=== PATIENT | female | born 1970 | race Two or more races ===

== ENCOUNTER 2024-11-14 16:25 | Emergency (ER) | payer BC, SELFPAY ==
[2024-11-14 16:43] VITALS: BP 166/94; PULSE 97; RESP 18; TEMP 36.6; O2SAT 100; BMI 29.8
--- NOTE | 2024-11-14 16:43 | XR_ITS ---
Examination: Left elbow 3 views Technique: Elbow AP, oblique, lateral 3 views Exam date and time: November 14, 2024 1656 hrs. Indications: Patient fell today with injury to the elbow, elbow pain. Findings: Acute displaced supracondylar fracture distal humerus, with significant displacement of the medial humeral condyle Ulna and radius appear intact Impression: Acute displaced supracondylar fracture distal humerus.
--- NOTE | 2024-11-14 16:44 | PD.EDRME ---
Rapid Medical Screening Exam RME Arrival date/time: 11/14/24 16:25 54-year-old female presents the emergency department complaints of fall today patient reports left elbow pain Chief Complaint: Fall
[2024-11-14] MEDS: HYDROcodone/APAP 5/325 TABLET 1 TAB PO (16:59)
--- NOTE | 2024-11-14 17:27 | EDNOTE_ITS ---
ED Fall Injury RME/HPI General Chief Complaint: Fall Stated Complaint: left arm pain previous fx/ fell today Time Seen by Provider: 11/14/24 17:12 Arrival date/time: 11/14/24 16:25 RME / HPI RME / HPI Narrative: 11/14/24 16:25 54-year-old female presents the emergency department complaints of fall today patient reports left elbow pain DR. SALINAS MAIN ED EVALUATION: 54 year old female presents to the Emergency Department with complaint of left elbow pain secondary to fall today. Pain is described as aching and rated mild to moderate in severity. Movement exacerbates the pain. PMHx: Denies any known PMHx, surgeries, daily medications, or known allergies. Social Hx: No tobacco, alcohol, or substance use. Related Data Allergies Allergy/AdvReac Type Severity Reaction Status Date / Time NKA Allergy Unknown Uncoded 11/14/24 16:27 No Known Allergies Allergy Unknown Uncoded 12/09/06 17:24 Review of Systems Review of Systems Systems Reviewed: All systems reviewed, normal except as documented Narrative Review of Systems: GEN: No fever, no chills, no weight loss EYES: No discharge, no visual changes, no pain HEENT: No ear pain, no congestion, no sore throat PULM: No shortness of breath, no cough, no congestion CV: No chest pain, no dyspnea on exertion, no palpitations GI: No nausea, no vomiting, no diarrhea, no pain, no constipation : No frequency, no urgency and no dysuria MUSC/SKEL: + left elbow pain secondary to fall, no back pain SKIN: No rash PSYCH: No hallucinations, no depression HEME/LYMPH: No easy bleeding or bruising tendencies NEURO: No weakness, no headache Past Medical History Social History SMOKING STATUS: Never smoker SUBSTANCE USE: does not use ALCOHOL: Never ED Exam Narrative Physical exam: GENERAL APPEARANCE: alert and oriented x 4, well-developed, well-nourished VITALS: All vitals were reviewed and the pulse ox is 100% on room air, which is normal according to my interpretation. HEENT: Normocephalic, atraumatic; pupils equal, round, reactive to light; EOMI; mucous membranes pink, moist; oropharynx clear NECK: Supple LUNGS: CTABL; no wheezes, no rales, no rhonchi HEART: Regular rate, regular rhythm; normal S1, S2; no murmurs ABDOMEN: non distended; normal BS; soft, no tenderness, no guarding, no rebound; no masses, no organomegaly, no hernia BACK: no CVA tenderness EXTREMITIES: + left elbow deformity with some swelling NEUROLOGIC: awake; alert and oriented x4; cranial nerves II-XII grossly intact; no focal sensory or motor deficits PSYCHIATRIC: appropriate mood and affect SKIN: warm, dry, normal color; no rashes Course Course Course Narrative: 1800: Patient was signed out to Dr. Mari. Past medical, surgical, social and family history reviewed. Vitals and home medications reviewed. Results and treatment plan discussed. They will assume the care of the patient at this time and will follow the patient, pending transfer for ortho. Quality Measures none Orders Category Date Time Status XR elbow comp LT min 3V Stat Exams 11/14/24 16:43 Completed HYDROcodone*/APAP 5/325 [Adel 5/325] Med 11/14/24 16:43 Discontinued 1 tab PO X1 ONE Morphine Inj Med 11/14/24 17:34 Discontinued 5 mg IVP X1 ONE Ondansetron Inj [Zofran Inj] Med 11/14/24 17:34 Discontinued 4 mg IV X1 ONE Vital Signs Vital signs: Vital Signs Temperature 98 F 11/14/24 16:43 Pulse Rate 97 11/14/24 16:43 Respiratory Rate 18 11/14/24 16:43 Blood Pressure 166/94 H 11/14/24 16:43 Pulse Oximetry (%) 100 11/14/24 16:43 Oxygen Delivery Method Room Air 11/14/24 16:43 Fall MDM Narrative MDM Narrative:: IAlyssa am scribing for and in the presence of Dr. Salinas. Patient data External records reviewed:: None (No previous visits) Clinical information provided by:: patient Social determinants that could affect healthcare access:: none Patient has the following chronic illnesses:: Denies any known PMHx, surgeries, daily medications, or known allergies. How is presenting disease/condition affected by chronic disease/condition?: no chronic disease Evaluation data The following diagnostics were reviewed and interpreted by me:: radiology exam(s) Lab and/or radiology exams considered but not ordered:: none Interpretation Summary: Procedure(s): XR elbow comp LT min 3V Accession Number(s): [id number] cc: Boyd (MENTAL HEALTH PROGRAM SPECIALIST),Pacheco MENTAL HEALTH PROGRAM SPECIALIST; Tim Valentin MD~ Examination: Left elbow 3 views Technique: Elbow AP, oblique, lateral 3 views Exam date and time: November 14, 2024 1656 hrs. Indications: Patient fell today with injury to the elbow, elbow pain. Findings: Acute displaced supracondylar fracture distal humerus, with significant displacement of the medial humeral condyle Ulna and radius appear intact Impression: Acute displaced supracondylar fracture distal humerus. Dictated By: Tim Valentin MD Medications / Prescriptions Medications or Prescriptions considered but not ordered:: none Medication administrations:: Medication Administration History Discontinued Medications Hydrocodone Bitart/Acetaminophen (Hydrocodone/Apap 5/325 Tablet) 1 tab PO X1 ONE Stop: 11/14/24 16:44 Last Admin: 11/14/24 16:59 Dose: 1 tab Documented By: SONU Morphine Sulfate (Morphine Sulf Inj 10 Mg/Ml Vial) 5 mg IVP X1 ONE Stop: 11/14/24 17:35 Last Admin: 11/14/24 17:49 Dose: 5 mg Documented By: COLTEN Ondansetron HCl (Ondansetron Inj 2 Mg/Ml Inj 2 Ml) 4 mg IV X1 ONE Stop: 11/14/24 17:35 Last Admin: 11/14/24 17:50 Dose: 4 mg Documented By: COLTEN see above Consultations Consultation(s) initiated? (list below): Yes Diagnosis Fall Differential Diagnosis: other (elbow fracture, fall, elbow dislocation) Most likely diagnosis given after review of the tests above:: Left elbow fracture Admission Indicated Admission indicated?: not indicated Explain why admission is indicated or not indicated:: Patient needs higher level of care and will be transferred for ortho. Admission Request Was there a request for admission?: No Disposition Plan Disposition Plan: Transfer (Patient signout to the security guard dispatcher provider, pending transfer.) Discharge Plan Problem List Clinical Impression: Fracture of left elbow Patient/Caregiver Discharge Instructions Print Language: English
[2024-11-14] MEDS: MORPHINE SULF INJ 10 MG/ML VIAL 5 MG IVP (17:49)
[2024-11-14] MEDS: ONDANSETRON INJ 2 MG/ML INJ 2 ML 4 MG IV (17:50)
--- NOTE | 2024-11-14 18:07 | PD.EDADDENDU ---
Emergency Room Addendum <Alyssa Rodriguez - Last Filed: 11/14/24 18:08> Addendum Narrative: 1800: Care assumed from Dr. Salinas, the previous shift emergency physician. Past medical, surgical, social and family history reviewed. Vitals and home medications reviewed. I will assume the care of the patient at this time, pending transfer for ortho. Please refer to the emergency department record for history and examination from initial visit.? Physical exam by me shows patient under no acute distress at this time. <Wilbert Mari MD - Last Filed: 11/15/24 02:37> Addendum Narrative: This section includes all my notes and documentations, including HPI, PE, and ED course. Wilbert Mari MD I took over the care from Dr. SALINAS at 6 PM on 11/14/2024, see her notes for complete H&P and ED course. My review of the left elbow x-ray report is: Acute displaced supracondylar fracture distal humerus, with significant displacement of the medial humeral condyle. Treatment here included sling and pain management. She felt better. I discussed the case with Dr. Martin (orthopedic surgeon at [facility]). About the presentation and exam and diagnostics and treatments here. And possible need of further care there. Recommended outpatient care, gave her appointment for 8 AM on 11/17/2024. Based on my best medical judgment, made decision no further evaluation or treatment indicated at this time. Patient understands and agrees to the discharge instructions customized and printed, see below. Discharge Instructions from Dr. Mari printed for you: 1. Unfortunately, you sustained severe left elbow fracture. 2. Wear the arm sling until cleared by a doctor taking care of you. 3. Apply ice for 20 minutes every 2-3 hours today and tomorrow. 4. Ibuprofen 800 mg every 6-8 hours today and tomorrow to decrease inflammation then as needed. 5. Elevate above the heart level for 3 days is much as possible. 6. Tylenol with codeine for severe pain. Apply [id number] lidocaine patches as needed. 7. See Dr. Martin (orthopedic surgeon) on 11/17/2024 at 8 AM. Nothing to eat or drink after midnight on night. [address] [place] [id number] 8. Seek immediate medical care with intolerable pain, if you can't move the fingers normally, your fingers turn cold and blue, or with any concerns. We are sorry this entire process took so long. But if you try to find the specialist for yourself, it would have taken weeks and months. Instrucciones de oscar del Dr. Mari impresas para usted: 1. Lamentablemente, sufri? fuentes fractura grave del codo cally. 2. Use el cabestrillo hasta que el m?dico que lo atienda le d? el visto kaye. 3. Aplique hielo carla 20 minutos cada 2 o 3 horas hoy y ma?chuck. 4. Ibuprofeno 800 mg cada 6 u 8 horas hoy y ma?chuck para disminuir la inflamaci?n y luego, seg?n sea necesario. 5. Eleve la temperatura por encima del nivel del coraz?n carla 3 d?as, en la medida de lo posible. 6. Tylenol con code?na para el dolor intenso. Aplique parches de lidoca?na de venta liset seg?n sea necesario. 7. Visite al Dr. Martin (cirujano ortop?dico) el 17/11/2024 a las 8 a. m. No coma ni polina nada despu?s de la medianoche del jueves por la noche. [address] [place] [id number] 8. Busque atenci?n m?dica inmediata si siente un dolor intolerable, no puede waste duster los dedos con normalidad, si los dedos se ponen fr?os y azules o si tiene alguna inquietud. Lamentamos que todo toshia proceso haya tardado tanto. Luis si intenta encontrar al especialista por trinidad cuenta, le habr? llevado semanas y meses. Wilbert Mari MD
--- NOTE | 2024-11-14 18:59 | PC.NURSE ---
packet faxed to [facility] for a request a transfer for ortho services
--- NOTE | 2024-11-14 19:46 | PC.NURSE ---
DR. DUARTE ON PHONE SPEAKING WITH [facility] FOR POSSIBLE TRANSFER.
[2024-11-14] MEDS: KETOROLAC INJ 30 MG/ML VIAL IVP (19:47)
[2024-11-14 19:50] VITALS: BP 136/87; PULSE 88; RESP 18; TEMP 36.9; O2SAT 98
--- NOTE | 2024-11-14 19:57 | PC.NURSE ---
PER DR. GERALD GUTIERREZ DENIED TRANSFER FOR PT.
--- NOTE | 2024-11-14 21:00 | PC.NURSE ---
P[facility] TO [facility]
[2024-11-14] MEDS: HYDROmorphone INJ 2 MG/ML VIAL 0.5 MG IVP (21:54)
[2024-11-14] MEDS: LIDOCAINE 5% 1 PATCH TOP (21:54)
[2024-11-14 21:55] VITALS: BP 129/85; PULSE 96; RESP 19; TEMP 36.9; O2SAT 98
--- NOTE | 2024-11-14 22:13 | PC.NURSE ---
CALL PLACED TO [facility] IN REGARDS TO TRANSFER. DR. DUARTE SPEAKING WITH TRANSFER NURSE JOE. STATES WILL GIVE US A CALL BACK.
--- NOTE | 2024-11-15 00:43 | PC.NURSE ---
JOE FROM [facility] CALLED BACK TO INFORM US THAT THERE ORTHO SPECIALIST DR YOU DECLINED PT AT THIS TIME DUE TO BEING OUT OF HIS SCOPE OF PRACTICE AND THAT THE PT WOULD NEED A HAND/TRAUMA SURGEON AND GAVE A RECOMMENDATION OF CALLING [facility]. CHARGE NURSE CORAL MADE AWARE
--- NOTE | 2024-11-15 01:12 | PC.NURSE ---
SPOKE WITH TRANSFER CENTER ([facility]) AT [facility]. REQUESTING PACKET TO BE FAXED AND WILL REVIEW.
--- NOTE | 2024-11-15 01:19 | PC.NURSE ---
TRANSFER PACKET FAXED TO [facility], AWAITING CALL BACK AT THIS TIME.
--- NOTE | 2024-11-15 01:44 | PC.NURSE ---
CONCHA FROM [facility] CALLING TO SPEAK WITH DR. DUARTE AT THIS TIME
[2024-11-15 02:10] VITALS: BP 118/76; PULSE 89; RESP 18; TEMP 37.1; O2SAT 97
--- NOTE | 2024-11-15 02:22 | PC.NURSE ---
Shirlene from [facility] calling back to inform us that per their ortho specialist Dr Fady Martin, pt can follow up in his out patient clinic on Wednesday morning and to instruct pt to arrive by 8am. He also instructed to keep pt in a sling and prescribe pain meds also to furnish pt with all images on a disk to bring with them. Address to clinic is [address] [place] [address] phone number [phone]
[2024-11-15 04:00] VITALS: BP 131/95; PULSE 90; RESP 18; TEMP 37; O2SAT 98
[2024-11-15] MEDS: HYDROmorphone INJ 2 MG/ML VIAL 1 MG IVP (04:00)
== END 2024-11-15 04:25 | disposition home or self-care (01) ==
PROVIDERS: Emergency Provider Emergency Medicine
DX: S42.412A Displaced simple supracondylar fracture without intercondylar fracture of left humerus, initial encounter for closed fracture (principal); W19.XXXA Unspecified fall, initial encounter
CPT/HCPCS: 73080; 96374; 96375; 96376; 99284; J1885; J2270; J2405; J3490; A9270